=== PATIENT | male | born 2000 | race Two or more races ===

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

== ENCOUNTER 2021-01-22 14:28 | Emergency (ER) | payer SELFPAY ==
[~2021-01-22] VITALS: Ht 180.3 cm; Wt 79.4 kg
[2021-01-22 14:33] VITALS: BP 154/99
== END 2021-01-22 16:35 | disposition left against medical advice (07) ==
LOC: EDBD 14:28 → ER 14:28
DX: M79.10 Myalgia, unspecified site (principal); R50.9 Fever, unspecified; Z53.21 Procedure and treatment not carried out due to patient leaving prior to being seen by health care provider; V43.52XA Car driver injured in collision with other type car in traffic accident, initial encounter; Y93.89 Activity, other specified; Y99.8 Other external cause status; Y92.410 Unspecified street and highway as the place of occurrence of the external cause

== ENCOUNTER 2021-09-08 16:19 | Emergency (ER) | payer MEDICAID ==
[~2021-09-08] VITALS: Ht 190.5 cm; Wt 77.1 kg
[2021-09-08] MEDS ORDERED: MIDAZOLAM HCL 5 MG/ML-1ML VIAL IV ONE (17:15)
[2021-09-08] MEDS ORDERED: ETOMIDATE (2MG/ML) 20ML VIAL IV ONE (17:15)
[2021-09-08 18:06] VITALS: BP 130/65
== END 2021-09-08 18:31 | disposition home or self-care (01) ==
LOC: ER 16:19
DX: S43.004A Unspecified dislocation of right shoulder joint, initial encounter (principal); X50.1XXA Overexertion from prolonged static or awkward postures, initial encounter; Y93.89 Activity, other specified; Y92.89 Other specified places as the place of occurrence of the external cause; Y99.8 Other external cause status
CPT/HCPCS: 23650; 73020; 73030; 99285; J2250